=== PATIENT | male | born 1950 | race Caucasian/White ===

== ENCOUNTER 2022-06-01 12:23 | Outpatient (CLI) | payer OTHER | END 2022-06-01 23:59 | disposition home or self-care (01) | LOC: CARD DIAG 12:23 | PROVIDERS: ATTEND Chiropractor | DX: M19.031 Primary osteoarthritis, right wrist (principal); M85.88 Other specified disorders of bone density and structure, other site; M25.431 Effusion, right wrist; I48.91 Unspecified atrial fibrillation; I25.9 Chronic ischemic heart disease, unspecified; I25.10 Atherosclerotic heart disease of native coronary artery without angina pectoris; I08.1 Rheumatic disorders of both mitral and tricuspid valves | CPT/HCPCS: 73100; 93005; 93306 ==